=== PATIENT | male | born 1965 | race Caucasian/White ===

== ENCOUNTER 2019-12-12 02:07 | Emergency (ER) | payer SELFPAY ==
[2019-12-12] MEDS ORDERED: IBUPROFEN 600 MG TABLET PO ONE (02:54)
[2019-12-12] MEDS ORDERED: ONDANSETRON 4 MG TAB.RAPDIS PO ONE (02:54)
[2019-12-12] MEDS ORDERED: HYDROCODONE/ACETAMINOPHEN 5-325 MG (6 TAB/ER DISP) PO PRN (06:04)
[2019-12-12] MEDS ORDERED: PENICILLIN V POTASSIUM 500 MG TABLET PO ONE (06:04)
--- NOTE | 2019-12-12 06:10 | ER Document Report ---
ED General - General Chief Complaint: Toothache Stated Complaint: FACIAL ACHES,VOMITING Notes: Patient is a 54-year-old white male with a past medical history of hypertension who presents to the emergency department the chief complaint of toothache for the past few days. States it is the right side causing some mild right cheek swelling compared with the left. States the pain is worsened with taking in any hot or cold substances and chewing. States he cannot localize the site of pain. He reports most of his teeth on the right lower mandible are gone. He denies any known recent dental injury. Denies any fever, tongue swelling, difficulty breathing or trouble with secretions. Denies any neck pain, chest pain or shortness of breath. - Related Data Allergies/Adverse Reactions: No Known Drug Allergies Allergy (Verified 12/12/19 05:49) Home Medications: was on BP meds Past Medical History - Social History Smoking Status: Current Every Day Smoker Family History: None Patient has homicidal ideation: No - Past Medical History Cardiac Medical History: Reports: Hx Hypertension Review of Systems - Review of Systems EENT: Dental problem -: Yes All other systems reviewed and negative Physical Exam - Vital signs Vitals: Temp Pulse Resp BP Pulse Ox 97.8 F 57 L 20 171/103 H 98 12/12/19 02:46 12/12/19 02:46 12/12/19 02:46 12/12/19 02:46 12/12/19 02:46 - General General appearance: Appears well, Alert In distress: None - HEENT Head: Normocephalic, Atraumatic Eyes: Normal Conjunctiva: Normal Extraocular movements intact: Yes Pupils: PERRL Ears: Normal External canal: Normal Tympanic membrane: Normal Nasal: Normal Mouth/Lips: Other - Missing dentition throughout. Tender to the right lower gingiva. No obvious significant erythema or abscess formation. No purulence. Patent airway, handling secretions well. No sublingual or submental swelling. No trismus. Pharynx: Normal Neck: Normal - Respiratory Respiratory status: No respiratory distress Chest status: Nontender Breath sounds: Normal Chest palpation: Normal - Cardiovascular Rhythm: Regular Heart sounds: Normal auscultation - Neurological Neuro grossly intact: Yes Cognition: Normal Orientation: AAOx4 - Psychological Associated symptoms: Normal affect, Normal mood - Skin Skin Temperature: Warm Skin Moisture: Dry Skin Color: Normal Course - Re-evaluation Re-evalutation: 12/12/19 06:36 EKG at 6:26 AM, sinus at 51 bpm. Normal intervals. No STEMI. Interpreted by ED attending. 12/12/19 06:41 No suspicion for cardiac etiology. Patient started on Pen-Vee K, prescribed Peridex and lidocaine oropharyngeal solution. He also reports that he takes Lotrel daily for his hypertension. He is out so we will refill this for him for the next 2 weeks. Counseled him at length regarding the importance of outpatient follow-up with the dentist and a primary care provider. Advised to return here or any ER immediately with any new, persistent or worsening symptoms. He verbalized understood and agreed. - Vital Signs Vital signs: Temp Pulse Resp BP Pulse Ox 97.7 F 52 L 16 173/94 H 96 12/12/19 04:26 12/12/19 04:26 12/12/19 04:26 12/12/19 04:26 12/12/19 04:26 Discharge - Discharge Clinical Impression: Dentalgia, Dental abscess, Medication refill, History of hypertension Condition: Stable Disposition: HOME, SELF-CARE Instructions: Toothache (OM), [facility] Additional Instructions: Follow-up with your regular doctor in 2 to 3 days for reevaluation as well as with the dentist. Return here or any ER immediately with any new, persistent or worsening symptoms. Prescriptions: Amlodipine Besylate/Benazepril [Amlodipine-Benazepril 10-20 mg] 1 cap PO DAILY #15 cap Penicillin V Potassium [Penicillin Vk 500 mg Tablet] 500 mg PO QID #39 tablet Chlorhexidine Gluconate [Peridex] 15 ml MM QID #120 ml Lidocaine HCl [Xylocaine 2% Viscous Soln 15 ml Udcup] 15 ml MM QID PRN #20 udc PRN Reason: Forms: Elevated Blood Pressure
[2019-12-12 06:54] VITALS: BP 158/94
--- NOTE | 2019-12-12 07:53 | EKG REPORT ---
SEVERITY:- NORMAL ECG - SINUS RHYTHM : Confirmed by: Lori Davila MD 12-Dec-2019 07:53:02
== END 2019-12-12 06:56 | disposition home or self-care (01) ==
LOC: ER 02:07
DX: K04.7 Periapical abscess without sinus (principal); K08.89 Other specified disorders of teeth and supporting structures; I10 Essential (primary) hypertension; F17.200 Nicotine dependence, unspecified, uncomplicated; Z76.0 Encounter for issue of repeat prescription
CPT/HCPCS: 93005; 99283; 93010; S0119